=== PATIENT | female | born 1970 | race Caucasian/White ===

== ENCOUNTER 2021-04-28 15:05 | Emergency (ER) | payer BC, SELFPAY ==
[2021-04-28] VITALS (31 sets, daily range): BP systolic 135–197; BP diastolic 75–111; PULSE 85–120; RESP 12–30; TEMP 36.4; O2SAT 97–100
--- NOTE | ~2021-04-28 | XR_ITS ---
EXAMINATION: XR chest 2V DATE: 04/28/2021 15:23 INDICATION: Shortness of breath, tachycardia and bilateral hand numbness TECHNIQUE: frontal and lateral views of the chest were obtained. COMPARISON: None FINDINGS: The lungs are clear with no focal airspace opacities, pulmonary edema, pleural effusion or pneumothor ax. The cardiomediastinal silhouette is normal. Median sternotomy wires. Mild thoracic spondylosis. IMPRESSION: 1. No acute cardiopulmonary disease. Reviewed, dictated and finalized at location A.
--- NOTE | 2021-04-28 15:07 | ECG_ITS ---
Measurements Intervals [place] Rate: 116 P: 55 [place]: 177 QRS: -34 QRSD: 116 T: 29 QT: 330 QTc: 459 Interpretive Statements SINUS TACHYCARDIA INCOMPLETE RIGHT BUNDLE BRANCH BLOCK DELAYED PRECORDIAL R/S TRANSITION BASELINE ARTIFACT- II, III, AVF ABNORMAL ECG Electronically Signed On 04-28-2021 20:01:53 CDT by Branden Oates D.O.
[2021-04-28 15:20] LABS: Basophils Absolute Auto 0.1 K/mm3 (0.0-0.1); Basophils Percent Auto 0.5 % (0.2-1.2); Eosinophils Absolute Auto 0.1 K/mm3 (0-0.3); Eosinophils Percent Auto 0.5 % (0-4.4); Hematocrit 42.1 % (37.0-47.0); Hemoglobin 14.1 g/dL (12.0-15.0); Immature Granulocyte Absolute 0.09 K/mm3 (0.00-0.031); Immature Granulocyte Percent A 0.7 % (0-0.5); Lymphocytes Absolute Auto 2.63 K/mm3 (0.9-3.2); Lymphocytes Percent Auto 19.8 % (18.3-44.2); Mean Corpuscular HGB Conc 33.5 g/dl (32-36); Mean Corpuscular Hemoglobin 31.6 pg (26-34); Mean Corpuscular Volume 94.4 fl (80-100); Mean Platelet Volume 9.2 fl (7.4-10.4); Monocytes Percent Auto 7.2 % (2.6-8.5); Neutrophils Absolute Auto 9.5 K/mm3 (1.3-6.7); Neutrophils Percent Auto 71.3 % (45.5-73.1); Platelet Count Result 320 k/mm3 (150-375); Red Blood Count 4.46 M/mm3 (4.2-5.4); Red Cell Distribution Width 12.9 % (11.5-14.5); White Blood Count 13.3 K/mm3 (4.5-10.0)
[2021-04-28 15:30] LABS: INR 0.9; Prothrombin Time 12.9 Seconds (11.1-14.7)
[2021-04-28 15:31] LABS: Partial Thromboplastin Time 24.9 SECONDS (22.3-36.8)
[2021-04-28 15:32] LABS: Anion Gap 12 mmol/L (8-16); Blood Urea Nitrogen 15 mg/dL (7-17); Calcium 10.2 mg/dL (8.4-10.2); Carbon Dioxide 23 mmol/L (22-30); Chloride 104 mmol/L (98-107); Estimated CRCL calculation 74 ml/min; Estimated Glomerular Filt Rate > 60; Glucose 125 mg/dL (65-105); Potassium 3.8 mmol/L (3.4-5.0); Sodium 139 mmol/L (137-145)
[2021-04-28 15:44] LABS: Troponin I < 0.012 ng/mL (0.000-0.034)
[2021-04-28] MEDS: MECLIZINE HCL 25 MG TABLET PO (17:06)
--- NOTE | 2021-04-28 17:39 | ED.ARRPALP ---
HPI - Arrhythmia/Palpitations General Chief Complaint: Arrhythmia/Palpitations Stated Complaint: heart racing, arms tingling Time Seen by Provider: 04/28/21 15:47 History of Present Illness HPI narrative: Patient is a 51-year-old female who presents ER with chief complaint of triage of palpitations and tingling in her hands. Discussing with patient she reports that she is starting to get very dizzy with positional movements such as going from sitting to standing or lying to sitting. Causes her to have some nausea and anxiousness as well as racing of the heart. Has history of peripheral vertigo and she did have some ringing in her right ear prior to this starting. She said no sinus congestion with sore throat or productive cough. Dizziness will last for just couple of seconds. It worsens her nausea. Related Data Allergies Allergy/AdvReac Type Severity Reaction Status Date / Time Penicillins Allergy Rash Verified 04/28/21 16:04 Review of Systems Review of Systems: All systems reviewed & are unremarkable except as noted in HPI and below Constitutional: Constitutional: Denies chills, Denies fever(s) and Denies weakness ENT: Reports dizziness, Denies nasal congestion and Denies sore throat Comments: Tinnitus Cardiovascular: Cardiovascular: Denies chest pain, Reports rapid heart rate and Denies radiating jaw, neck or arm pain Respiratory: Respiratory: Denies cough, Denies dyspnea and Denies wheezing Gastrointestinal: Gastrointestinal: Denies abdominal pain, Reports nausea and Denies vomiting PMFSH Past Medical History Medical History (Updated 04/28/21 @ 18:53 by Anand Ta MD) History of bicuspid heart valve Vertigo Surgical History Surgical History (Updated 04/28/21 @ 18:30 by Anand Ta MD) H/O congenital atrial septal defect (ASD) repair Social History Social History (Updated 04/28/21 @ 18:30 by Anand Ta MD) Smoking status: Never smoker Gender identity (if verbalized by the patient): Female Exam Narrative: Exam Narrative: GENERAL: Well-appearing, well-nourished, and in no acute distress. HEAD: Normocephalic, atraumatic. EYES: PERRLA and EOMI. left gaze nystagmus. ENT: Mucous membranes moist. TMs normal bilaterally. CHEST: Clear to auscultation. No respiratory distress. HEART: Regular rate and rhythm. Normal peripheral pulses. ABDOMEN: Soft, nontender, nondistended. EXTREMITIES: Normal range of motion. No edema. NEURO: Alert and oriented x3. PSYCH: Normal mood and affect. Course Course Emergency Course: Patient resting comfortably after fluids, Zofran and meclizine. Dizziness improved. Feels comfortable discharge. Has home Phenergan and does not require any additional antiemetics. Symptoms may be related vertigo. Could also be related to dehydration. Vital Signs Vital signs: Vital Signs Temperature 97.6 F 04/28/21 15:07 Pulse Rate 120 H 04/28/21 15:07 Respiratory Rate 18 04/28/21 15:07 Blood Pressure 197/89 H 04/28/21 15:07 Pulse Oximetry 100 04/28/21 15:07 Temperature 97.6 F 04/28/21 15:07 Pulse Rate 108 H 04/28/21 18:18 Respiratory Rate 18 04/28/21 16:30 Blood Pressure 173/91 H 04/28/21 18:18 Pulse Oximetry 98 04/28/21 16:30 MDM - Arrhythmia/Palpitations Lab Data Result diagrams: 04/28/21 15:15 04/28/21 15:15 Labs: Lab Results 04/28/21 04/28/21 04/28/21 Range/Units 15:15 15:15 15:15 WBC 13.3 H (4.5-10.0) K/mm3 RBC 4.46 (4.2-5.4) M/mm3 Hgb 14.1 (12.0-15.0) g/dL Hct 42.1 (37.0-47.0) % MCV 94.4 (80-100) fl MCH 31.6 (26-34) pg MCHC 33.5 (32-36) g/dl RDW 12.9 (11.5-14.5) % Plt Count 320 (150-375) k/mm3 MPV 9.2 (7.4-10.4) fl Immature Gran % (Auto) 0.7 H (0-0.5) % Neut % (Auto) 71.3 (45.5-73.1) % Lymph % (Auto) 19.8 (18.3-44.2) % [place] % (Auto) 7.2 (2.6-8.5) % Eos % (Auto) 0.5 (0-4.4) % Baso % (Auto) 0.5 (0.2-1
[2021-04-28] MEDS: SODIUM CHLORIDE 0.9% IV 1,000 ML 999 ML IV CONT (18:01)
[2021-04-28] MEDS: ONDANSETRON INJ 4 MG/2 ML VIAL IV PUSH (18:01)
[2021-04-28 18:28] LABS: Troponin I < 0.012 ng/mL (0.000-0.034)
== END 2021-04-28 19:14 | disposition home or self-care (01) ==
PROVIDERS: Emergency Provider Emergency Medicine
DX: R42 Dizziness and giddiness (principal); Z87.74 Personal history of (corrected) congenital malformations of heart and circulatory system; R00.0 Tachycardia, unspecified; I45.10 Unspecified right bundle-branch block
CPT/HCPCS: 36415; 71046; 80048; 84484; 85025; 85610; 85730; 93005; 96361; 96374; 99284; A9270; J2405; J7030